=== PATIENT | male | born 1960 ===

== ENCOUNTER 2024-02-02 06:38 | Day surgery (SDC) | payer OTHER ==
[~2024-02-02] VITALS: Ht 180.3 cm; Wt 98.9 kg
[~2024-02-02 06:38] MED LIST: LR 1,000 ML IV SCH; Ondansetron 4 MG/2 ML VIAL IV PRN
[2024-02-02] MEDS ORDERED: Lidocaine PF 2% (20 MG/ML) 5 ML VIAL ONE (07:44)
[2024-02-02 08:15] VITALS: BP 109/61; PULSE 76; TEMP 97.8
[2024-02-02 08:30] VITALS: BP 118/85; PULSE 78
--- NOTE | 2024-02-02 08:30 | NUR ---
Patient returns from procedure to ENDO bay 2. Assist x2 from cart to recliner. VSS. Bedside hand off received from TANK Limon. Muffin and coffee given. at bedside. PT denies complaints.
--- NOTE | 2024-02-02 08:40 | NUR ---
Discharge instructions and education reviewed at length with patient. Taking in snack without issue. Dr. Flores in room talking with patient. Dressed.
[2024-02-02 08:45] VITALS: BP 123/84; PULSE 71; TEMP 97.8
--- NOTE | 2024-02-02 08:58 | NUR ---
IV site removed at 0850. Patient down to [employer] truck at 0855, via w/c, accompanied by this nurse. Pt denies complaints at time of discharge. Tolerated PO intake without issue.
== END 2024-02-02 08:55 | disposition home or self-care (01) ==
LOC: SDCO 06:38
DX: K29.50 Unspecified chronic gastritis without bleeding (principal); R19.7 Diarrhea, unspecified; Z87.891 Personal history of nicotine dependence
CPT/HCPCS: J2704; J7120